=== PATIENT | female | born 1965 | race Caucasian/White ===

== ENCOUNTER → 2017-11-19 | Outpatient (CLI) | payer BC ==
[~2017-11-19] MED LIST: ASPI81CH; ASPI81CH PO; ATOR40TA PO; BRILINTA90 MG PO; CARV3.125 PO; CELE200 PO; CEPH500 PO; CODACE30 PO; DULO30 PO; ESTR2 PO; ESTRADIOL-NORE1 EACH PO; HYDACE5 PO; HYDR1TAB94 PO; HYDSUL200; Hydrocodone-Ap1 EA23 PO; LEFL20 PO; LEFLUNOMIDE PO; METTREX2.5 PO; NEBI5 PO; NITR.4SL MM; Remicade100 MG IV; SULTRIDS PO
[2017-11-20 12:03] LABS: HPV Genotype 16 Not Detected (NOTDET); HPV Genotype 18 Not Detected (NOTDET)
[2017-11-26 13:43] LABS: HPV High Risk Other Detected (NOTDET)
== END | disposition home or self-care (01) ==
LOC: LAB 11:07 → LAB SHORT 11:07
PROVIDERS: Obstetrics & Gynecology
DX: R87.612 Low grade squamous intraepithelial lesion on cytologic smear of cervix (LGSIL) (principal); R87.810 Cervical high risk human papillomavirus (HPV) DNA test positive
CPT/HCPCS: 87624; 88142

== ENCOUNTER → 2018-01-29 | Outpatient (CLI) | payer BC | END | disposition home or self-care (01) | LOC: PLD 10:38 → LAB SHORT 10:38 | DX: D22.5 Melanocytic nevi of trunk (principal) | CPT/HCPCS: 88305 ==

== ENCOUNTER → 2018-09-24 | Outpatient (CLI) | payer BC | END | disposition home or self-care (01) | LOC: LAB SHORT 11:01 → LAB 11:01 | DX: R05 Cough (principal) | CPT/HCPCS: 87070; 87205 ==

== ENCOUNTER 2018-11-24 07:00 | Day surgery (SDC) | payer BC | END 2018-11-24 07:41 | disposition home or self-care (01) | LOC: MOI US 07:00 | PROC: 07B53ZX Excision of Right Axillary Lymphatic, Percutaneous Approach, Diagnostic (ICD-10-PCS; principal; 2018-11-24) | DX: D76.3 Other histiocytosis syndromes (principal) | CPT/HCPCS: 38505; 76942; 88305 ==

== ENCOUNTER → 2018-12-01 | Outpatient (CLI) | payer BC ==
[2018-12-03 14:07] LABS: HPV 16 Negative (Negative); HPV 18 Negative (Negative); HPV OTHER HR TYPES Positive (Negative)
== END | disposition home or self-care (01) ==
LOC: LAB SHORT 15:52 → LAB 15:52
PROVIDERS: Obstetrics & Gynecology
DX: R87.810 Cervical high risk human papillomavirus (HPV) DNA test positive (principal)
CPT/HCPCS: 87624; 87625; 88142

== ENCOUNTER → 2019-01-06 | Outpatient (CLI) | payer BC | END | disposition home or self-care (01) | LOC: PLD 08:05 → LAB SHORT 08:05 | DX: N84.1 Polyp of cervix uteri (principal); N87.1 Moderate cervical dysplasia | CPT/HCPCS: 88305 ==

== ENCOUNTER → 2019-07-20 | Outpatient (CLI) | payer BC | END | disposition home or self-care (01) | LOC: LAB SHORT 07:45 → PLD 07:45 | DX: D22.5 Melanocytic nevi of trunk (principal); L81.4 Other melanin hyperpigmentation | CPT/HCPCS: 88305 ==

== ENCOUNTER → 2020-01-11 | Outpatient (CLI) | payer BC ==
[2020-01-13 15:09] LABS: HPV 16 Negative (Negative); HPV 18 Negative (Negative); HPV OTHER HR TYPES Positive (Negative)
== END | disposition home or self-care (01) ==
PROVIDERS: Obstetrics & Gynecology
DX: R87.612 Low grade squamous intraepithelial lesion on cytologic smear of cervix (LGSIL) (principal); R87.810 Cervical high risk human papillomavirus (HPV) DNA test positive

== ENCOUNTER → 2020-05-25 | Outpatient (CLI) | payer BC | END | disposition home or self-care (01) | LOC: PLD 15:14 → LAB SHORT 15:14 | DX: D22.5 Melanocytic nevi of trunk (principal) | CPT/HCPCS: 88305; 88342 ==

== ENCOUNTER → 2020-06-24 | Outpatient (CLI) | payer BC | END | disposition home or self-care (01) | LOC: LAB 18:15 → LAB SHORT 18:15 | DX: L08.9 Local infection of the skin and subcutaneous tissue, unspecified (principal) | CPT/HCPCS: 87070; 87075; 87077; 87147; 87186; 87205 ==

== ENCOUNTER 2020-08-10 09:39 | Day surgery (SDC) | payer BC ==
[~2020-08-10] VITALS: Ht 160 cm; Wt 53.4 kg
[~2020-08-10 09:39] MED LIST changes: +ATOR20 PO; +Azulfidine500 M1 PO; +CETIRIZINE PO; +CLOP75 PO; +Cymbalta20 MG PO; +FLAX SEED OIL1000 MG PO; +Fluocinonide15 GM TOP; +GABA300 PO; +OMEP20ER PO; +PSEUDOEPHEDRINE PO; +Prednisone10 MG PO; +SIMPONI100 MG/1 M SC; +Vitamin C100 M1 PO; +[UNRECOGNIZED DRUG - OTHER] PO
[2020-08-10] MEDS ORDERED: PROM25 PO (13:01)
[2020-08-10] MEDS ORDERED: OXYC5 PO (13:01)
[2020-08-10] MEDS ORDERED: SULTRIDS PO (13:02)
--- NOTE | 2020-08-10 19:34 | NUR ---
SHIFT SUMMARY ALTHOUGH SHE WASN'T ABLE TO WORK WITH THERAPY DUE TO SPINAL, PT WAS ABLE TO GET UP AND AMBULATE WITH THIS RN IN [place] THIS EVENING. PAIN WELL CONTROLLED. EATING, DRINKING, VOIDING. PLEASANT & COOPERATIVE.
[2020-08-11 05:04] LABS: BASOPHILS ABSOLUTE AUTO 0.06 K/mm3 (0.00-0.23); BASOPHILS PERCENT AUTO 1 % (0-2); EOSINOPHILS ABSOLUTE AUTO 0.14 K/mm3 (0.00-0.68); EOSINOPHILS PERCENT AUTO 2 % (0-6); Hematocrit 29.2 % (33.0-51.0); Hemoglobin 9.6 g/dL (11.5-16.0); IMMATURE GRAN ABSOLUTE AUTO 0.04 K/mm3 (0.00-0.10); IMMATURE GRAN PERCENT AUTO 0 % (0-1); LYMPHOCYTES ABSOLUTE AUTO 1.53 K/mm3 (0.84-5.20); LYMPHOCYTES PERCENT AUTO 17 % (21-46); MONOCYTES ABSOLUTE AUTO 1.07 K/mm3 (0.16-1.47); MONOCYTES PERCENT AUTO 12 % (4-13); Mean Corpuscular HGB 31.5 pg (26.0-34.0); Mean Corpuscular HGB Conc 32.9 g/dL (31.5-36.5); Mean Corpuscular Volume 96 fL (80-100); Mean Platelet Volume 11.6 fL (9.1-12.4); NEUTROPHILS PERCENT AUTO 69 % (41-73); Platelet Count 193 K/mm3 (150-400); RDW Coefficient Variation 12.1 % (11.7-14.2); RDW Standard Deviation 42.2 fL (35.1-46.3); Red Blood Cell Count 3.05 M/mm3 (3.80-5.20); White Blood Cell Count 9.24 K/mm3 (4.00-11.30)
--- NOTE | 2020-08-11 05:12 | NUR ---
SHIFT SUMMARY POD 1 L TKA AA0X4, PT HAS BEEN UP AND WALKING DURING SHIFT, TOLERATES WELL. ELSI WRAP CDI, POLAR HILDA ON. PT TOLERATING PO, HAS DENIED NAUSEA SINCE START OF SHIFT EMESIS. PAIN MANAGED PER EMAR, STATES MINIMAL AT THIS TIME. PT HAS BEEN RESTING IN BED. USING RESTROOM. PLAN IS TO WORK WITH THERAPY AND DC HOME TODAY.
[2020-08-11 05:28] LABS: Anion Gap 5 mmol/L (6-16); Blood Urea Nitrogen 10 mg/dL (8-24); Bun/Creatinine Ratio 13.6 (12.0-20.0); CO2, Blood 26 mmol/L (21-32); Calcium, Blood 8.1 mg/dL (8.5-10.1); Chloride, Blood 108 mmol/L (98-108); Creatinine, Blood 0.73 mg/dL (0.40-1.00); Glomerular Filtration Rate >60 (60-); Glucose, Blood 88 mg/dL (70-99); Magnesium, Blood 1.7 mg/dL (1.6-2.4); Potassium, Blood 3.8 mmol/L (3.5-5.5); Sodium, Blood 139 mmol/L (136-145)
--- NOTE | 2020-08-11 09:55 | NUR ---
PATIENT D/C'D HOME AT THIS TIME; STATES UNDERSTANDING OF MEDS, ACTIVITY, WOUND CARE, F/U APPT, ETC. PATIENT REFUSED AM MEDS D/T NAUSEA, UNDERSTANDS TO TAKE AT HOME THIS AM. PAIN CONTROLLED PER PATIENT. VOIDING. NO ACUTE CHANGES.
== END 2020-08-11 09:55 | disposition home or self-care (01) ==
LOC: ORSCMMR 09:39 → SURS 14:06 → ORSCMMR 08-11 09:55
PROVIDERS: Orthopaedic Surgery
PROC: 8E0YXBZ Computer Assisted Procedure of Lower Extremity (ICD-10-PCS; principal; 2020-08-10 11:15)
PROC: 0SRD0J9 Replacement of Left Knee Joint with Synthetic Substitute, Cemented, Open Approach (ICD-10-PCS; principal; 2020-08-10 11:15)
DX: M17.12 Unilateral primary osteoarthritis, left knee (principal); I10 Essential (primary) hypertension; Z79.899 Other long term (current) drug therapy; Z79.01 Long term (current) use of anticoagulants
CPT/HCPCS: 36415; 73560-LT; 80048; 83735; 85025; 88300; 97110; 97116; 97162; A9270; C1713; C1776; J0171; J0690; J0735; J1100; J1885; J2250; J2405; J2704; J2795; J3010; J3370; J7120

== ENCOUNTER → 2022-02-05 | Outpatient (CLI) | payer BC ==
[~2022-02-05] MED LIST changes: +OXYC5 PO; +PROM25 PO
[2022-02-06 16:11] LABS: HPV 16 Negative (Negative); HPV 18 Negative (Negative); HPV OTHER HR TYPES Positive (Negative)
== END | disposition home or self-care (01) ==
LOC: LAB 16:39 → LAB SHORT 16:39
PROVIDERS: Obstetrics & Gynecology
DX: Z12.4 Encounter for screening for malignant neoplasm of cervix (principal); R87.810 Cervical high risk human papillomavirus (HPV) DNA test positive
CPT/HCPCS: 87624; G0123

== ENCOUNTER → 2022-11-29 | Outpatient (CLI) | payer BC ==
[2022-11-29 15:52] LABS: BASOPHILS ABSOLUTE AUTO 0.09 K/mm3 (0.00-0.23); BASOPHILS PERCENT AUTO 2 % (0-2); EOSINOPHILS ABSOLUTE AUTO 0.19 K/mm3 (0.00-0.68); EOSINOPHILS PERCENT AUTO 3 % (0-6); Hematocrit 39.1 % (33.0-51.0); Hemoglobin 12.7 g/dL (11.5-16.0); IMMATURE GRAN ABSOLUTE AUTO 0.01 K/mm3 (0.00-0.10); IMMATURE GRAN PERCENT AUTO 0 % (0-1); LYMPHOCYTES ABSOLUTE AUTO 1.55 K/mm3 (0.84-5.20); LYMPHOCYTES PERCENT AUTO 25 % (21-46); MONOCYTES ABSOLUTE AUTO 0.43 K/mm3 (0.16-1.47); MONOCYTES PERCENT AUTO 7 % (4-13); Mean Corpuscular HGB 31.4 pg (26.0-34.0); Mean Corpuscular HGB Conc 32.5 g/dL (31.5-36.5); Mean Corpuscular Volume 97 fL (80-100); Mean Platelet Volume 12.9 fL (9.1-12.4); NEUTROPHILS ABSOLUTE AUTO 3.88 K/mm3 (1.96-9.15); NEUTROPHILS PERCENT AUTO 63 % (41-73); Platelet Count 234 K/mm3 (150-400); RDW Coefficient Variation 12.3 % (11.7-14.2); RDW Standard Deviation 44.2 fL (35.1-46.3); Red Blood Cell Count 4.04 M/mm3 (3.80-5.20); White Blood Cell Count 6.15 K/mm3 (4.00-11.30)
[2022-11-29 16:12] LABS: Albumin, Blood 3.9 g/dL (3.4-5.0); Albumin/Globulin Ratio 1.2 (0.8-1.8); Bilirubin, Total 0.4 mg/dL (0.1-1.0); Bun/Creatinine Ratio 15.6 (12.0-20.0); Calcium, Blood 8.7 mg/dL (8.5-10.1); Creatinine, Blood 0.71 mg/dL (0.40-1.00); Globulin, Blood 3.3 g/dL (2.2-4.0); Potassium, Blood 4.1 mmol/L (3.5-5.5); Total Protein, Blood 7.2 g/dL (6.4-8.2)
== END | disposition home or self-care (01) ==
LOC: LAB SHORT 09:30
PROVIDERS: Internal Medicine Rheumatology
DX: M06.00 Rheumatoid arthritis without rheumatoid factor, unspecified site (principal)
CPT/HCPCS: 80053; 85025; 85651

== ENCOUNTER → 2023-03-06 | Outpatient (CLI) | payer BC ==
[2023-03-06 13:35] LABS: BASOPHILS ABSOLUTE AUTO 0.06 K/mm3 (0.00-0.23); BASOPHILS PERCENT AUTO 2 % (0-2); EOSINOPHILS ABSOLUTE AUTO 0.17 K/mm3 (0.00-0.68); EOSINOPHILS PERCENT AUTO 4 % (0-6); Hematocrit 36.5 % (33.0-51.0); Hemoglobin 12.1 g/dL (11.5-16.0); IMMATURE GRAN PERCENT AUTO 0 % (0-1); LYMPHOCYTES ABSOLUTE AUTO 1.38 K/mm3 (0.84-5.20); LYMPHOCYTES PERCENT AUTO 34 % (21-46); MONOCYTES ABSOLUTE AUTO 0.47 K/mm3 (0.16-1.47); MONOCYTES PERCENT AUTO 12 % (4-13); Mean Corpuscular HGB 32.3 pg (26.0-34.0); Mean Corpuscular HGB Conc 33.2 g/dL (31.5-36.5); Mean Corpuscular Volume 97 fL (80-100); Mean Platelet Volume 12.1 fL (9.1-12.4); NEUTROPHILS ABSOLUTE AUTO 1.95 K/mm3 (1.96-9.15); NEUTROPHILS PERCENT AUTO 48 % (41-73); Platelet Count 238 K/mm3 (150-400); RDW Coefficient Variation 12.7 % (11.7-14.2); RDW Standard Deviation 45.1 fL (35.1-46.3); Red Blood Cell Count 3.75 M/mm3 (3.80-5.20); White Blood Cell Count 4.03 K/mm3 (4.00-11.30)
[2023-03-06 13:55] LABS: Albumin, Blood 3.6 g/dL (3.4-5.0); Albumin/Globulin Ratio 1.1 (0.8-1.8); Bilirubin, Total 0.5 mg/dL (0.1-1.0); Bun/Creatinine Ratio 16.4 (12.0-20.0); Calcium, Blood 8.4 mg/dL (8.5-10.1); Creatinine, Blood 0.73 mg/dL (0.40-1.00); Globulin, Blood 3.3 g/dL (2.2-4.0); Potassium, Blood 4.1 mmol/L (3.5-5.5); Total Protein, Blood 6.9 g/dL (6.4-8.2)
== END ==
LOC: LAB 12:05 → LAB SHORT 12:05
PROVIDERS: Internal Medicine Rheumatology
DX: M06.00 Rheumatoid arthritis without rheumatoid factor, unspecified site (principal)
CPT/HCPCS: 80053; 85025; 85651

== ENCOUNTER 2023-07-17 06:08 | Day surgery (SDC) | payer BC ==
[2023-07-17] VITALS (12 sets, daily range): BP systolic 118–149; BP diastolic 70–86
[~2023-07-17] VITALS: Ht 157.5 cm; Wt 55.0 kg
--- NOTE | 2023-07-17 08:31 | NUR ---
07/17/23 0831 Jeniffer Rogers SPINAL NERVE BLOCK COMPLETED BY DR. DE DIOS UPON ENTRY TO OR. PT TOLERATED WELL. PT NOTED TO BE REACTIVE AT START OF CASE SO AN LMA WAS PLACED BY DR. DE DIOS
--- NOTE | 2023-07-17 11:08 | NUR ---
ARRIVAL TO UNIT PT ARRIVED TO UNIT AA0X4. NO SENSATION FROM KNEES DOWN, UNABLE TO WIGGLE TOES. PPX4, CAP REFILL <3. TOES WARM. POLAR HILDA AND GHAZALA HOSE IN PLACE. PT TOLERATING WATER AT THIS TIME. NO NAUSEA REPORTED. DENIES PAIN. CALL LIGHT IN REACH.
[2023-07-17] MEDS ORDERED: OXAYDO5 M1 PO (11:26)
[2023-07-17] MEDS ORDERED: XARELTO20 MG PO (11:26)
[2023-07-17] MEDS ORDERED: SULTRIDS PO (11:27)
--- NOTE | 2023-07-17 15:01 | NUR ---
ASSUMED CARE OF PT.
--- NOTE | 2023-07-17 15:10 | NUR ---
Pt. is sitting in a recliner awaiting discharge when she welcomes my visit. Spouse is present. Pt. displays evidence of energy and motivation to address her recovery and rapport with family is established. Encourgaement and well wishes are given. Pt. and spouse verbalize gratitude for the lead sales consultant visit.
--- NOTE | 2023-07-17 15:33 | NUR ---
DISCHARGE PT HAS CLEARED THERAPY. PAIN WELL CONTROLLED. EATING, DRINKING, & VOIDING WELL. MICHAEL & CAROL PACK SENT w/ PT. ESCORTED OUT VIA W/C.
== END 2023-07-17 15:33 | disposition home or self-care (01) ==
LOC: ORSCMMR 06:08 → ORD 07:30 → ORSCMMR 07:30 → SURS 10:30 → ORSCMMR 15:33
PROVIDERS: Orthopaedic Surgery
PROC: 0SRC0J9 Replacement of Right Knee Joint with Synthetic Substitute, Cemented, Open Approach (ICD-10-PCS; principal; 2023-07-17 07:30)
DX: M17.11 Unilateral primary osteoarthritis, right knee (principal); I10 Essential (primary) hypertension; I25.10 Atherosclerotic heart disease of native coronary artery without angina pectoris; L40.50 Arthropathic psoriasis, unspecified; Z79.899 Other long term (current) drug therapy
CPT/HCPCS: 73560-RT; 97110; 97161; 97530; A9270; C1713; C1776; J0171; J0690; J0735; J1100; J1885; J2250; J2371; J2405; J2704; J2795; J3010; J3370; J7120

== ENCOUNTER → 2023-10-03 | Outpatient (CLI) | payer BC ==
[~2023-10-03] MED LIST changes: +OXAYDO5 M1 PO; +XARELTO20 MG PO
[2023-10-03 13:18] LABS: BASOPHILS ABSOLUTE AUTO 0.09 K/mm3 (0.00-0.23); BASOPHILS PERCENT AUTO 2 % (0-2); EOSINOPHILS ABSOLUTE AUTO 0.29 K/mm3 (0.00-0.68); EOSINOPHILS PERCENT AUTO 6 % (0-6); Hematocrit 39.9 % (33.0-51.0); Hemoglobin 13.1 g/dL (11.5-16.0); IMMATURE GRAN ABSOLUTE AUTO 0.01 K/mm3 (0.00-0.10); IMMATURE GRAN PERCENT AUTO 0 % (0-1); LYMPHOCYTES ABSOLUTE AUTO 1.46 K/mm3 (0.84-5.20); LYMPHOCYTES PERCENT AUTO 29 % (21-46); MONOCYTES ABSOLUTE AUTO 0.48 K/mm3 (0.16-1.47); MONOCYTES PERCENT AUTO 10 % (4-13); Mean Corpuscular HGB 31.7 pg (26.0-34.0); Mean Corpuscular HGB Conc 32.8 g/dL (31.5-36.5); Mean Corpuscular Volume 97 fL (80-100); Mean Platelet Volume 11.7 fL (9.1-12.4); NEUTROPHILS ABSOLUTE AUTO 2.64 K/mm3 (1.96-9.15); NEUTROPHILS PERCENT AUTO 53 % (41-73); Platelet Count 262 K/mm3 (150-400); RDW Coefficient Variation 12.2 % (11.7-14.2); RDW Standard Deviation 43.6 fL (35.1-46.3); Red Blood Cell Count 4.13 M/mm3 (3.80-5.20); White Blood Cell Count 4.97 K/mm3 (4.00-11.30)
[2023-10-04 09:11] LABS: A/G RATIO 2.1 (1.2-2.2); BILIRUBIN, TOTAL 0.3 mg/dL (0.0-1.2); CALCIUM, SERUM 9.7 mg/dL (8.7-10.2); CREATININE, SERUM 0.78 mg/dL (0.57-1.00); GLOBULIN, TOTAL 2.2 g/dL (1.5-4.5); POTASSIUM, SERUM 4.4 mmol/L (3.5-5.2); PROTEIN, TOTAL, SERUM 6.8 g/dL (6.0-8.5)
== END ==
LOC: LAB SHORT 11:45 → LAB 11:45
PROVIDERS: Internal Medicine Rheumatology
DX: M06.00 Rheumatoid arthritis without rheumatoid factor, unspecified site (principal)
CPT/HCPCS: 80053; 85025; 85651

== ENCOUNTER → 2024-04-16 | Outpatient (CLI) | payer BC ==
[2024-04-16 14:31] LABS: BASOPHILS ABSOLUTE AUTO 0.08 K/mm3 (0.00-0.23); BASOPHILS PERCENT AUTO 2 % (0-2); EOSINOPHILS ABSOLUTE AUTO 0.15 K/mm3 (0.00-0.68); EOSINOPHILS PERCENT AUTO 3 % (0-6); Hematocrit 37.5 % (33.0-51.0); Hemoglobin 12.2 g/dL (11.5-16.0); IMMATURE GRAN ABSOLUTE AUTO 0.01 K/mm3 (0.00-0.10); IMMATURE GRAN PERCENT AUTO 0 % (0-1); LYMPHOCYTES ABSOLUTE AUTO 1.17 K/mm3 (0.84-5.20); LYMPHOCYTES PERCENT AUTO 24 % (21-46); MONOCYTES ABSOLUTE AUTO 0.47 K/mm3 (0.16-1.47); MONOCYTES PERCENT AUTO 9 % (4-13); Mean Corpuscular HGB 32.9 pg (26.0-34.0); Mean Corpuscular HGB Conc 32.5 g/dL (31.5-36.5); Mean Corpuscular Volume 101 fL (80-100); Mean Platelet Volume 12.5 fL (9.1-12.4); NEUTROPHILS PERCENT AUTO 62 % (41-73); Platelet Count 205 K/mm3 (150-400); RDW Coefficient Variation 12.5 % (11.7-14.2); Red Blood Cell Count 3.71 M/mm3 (3.80-5.20); White Blood Cell Count 4.98 K/mm3 (4.00-11.30)
[2024-04-16 15:31] LABS: Albumin/Globulin Ratio 1.2 (0.8-1.8); Bilirubin, Total 0.6 mg/dL (0.1-1.0); Bun/Creatinine Ratio 26.2 (12.0-20.0); Creatinine, Blood 0.73 mg/dL (0.40-1.00); Globulin, Blood 3.3 g/dL (2.2-4.0); Total Protein, Blood 7.3 g/dL (6.4-8.2)
== END | disposition home or self-care (01) ==
LOC: LAB SHORT 11:31 → LAB 11:31
PROVIDERS: Internal Medicine Rheumatology
DX: M06.00 Rheumatoid arthritis without rheumatoid factor, unspecified site (principal)
CPT/HCPCS: 80053; 85025; 85651

== ENCOUNTER → 2024-10-14 | Outpatient (CLI) | payer BC ==
[2024-10-14 14:34] LABS: BASOPHILS ABSOLUTE AUTO 0.07 K/mm3 (0.00-0.23); BASOPHILS PERCENT AUTO 2 % (0-2); EOSINOPHILS ABSOLUTE AUTO 0.13 K/mm3 (0.00-0.68); EOSINOPHILS PERCENT AUTO 3 % (0-6); Hematocrit 37.4 % (33.0-51.0); Hemoglobin 12.5 g/dL (11.5-16.0); IMMATURE GRAN ABSOLUTE AUTO 0.01 K/mm3 (0.00-0.10); IMMATURE GRAN PERCENT AUTO 0 % (0-1); LYMPHOCYTES ABSOLUTE AUTO 1.11 K/mm3 (0.84-5.20); LYMPHOCYTES PERCENT AUTO 25 % (21-46); MONOCYTES PERCENT AUTO 11 % (4-13); Mean Corpuscular HGB 33.5 pg (26.0-34.0); Mean Corpuscular HGB Conc 33.4 g/dL (31.5-36.5); Mean Corpuscular Volume 100 fL (80-100); Mean Platelet Volume 12.5 fL (9.1-12.4); NEUTROPHILS ABSOLUTE AUTO 2.66 K/mm3 (1.96-9.15); NEUTROPHILS PERCENT AUTO 59 % (41-73); Platelet Count 247 K/mm3 (150-400); RDW Standard Deviation 44.9 fL (35.1-46.3); Red Blood Cell Count 3.73 M/mm3 (3.80-5.20); White Blood Cell Count 4.48 K/mm3 (4.00-11.30)
[2024-10-14 14:52] LABS: Albumin, Blood 3.7 g/dL (3.4-5.0); Albumin/Globulin Ratio 1.1 (0.8-1.8); Bilirubin, Total 0.7 mg/dL (0.1-1.0); Bun/Creatinine Ratio 19.6 (12.0-20.0); Calcium, Blood 9.3 mg/dL (8.5-10.1); Creatinine, Blood 0.72 mg/dL (0.40-1.00); Globulin, Blood 3.5 g/dL (2.2-4.0); Potassium, Blood 4.2 mmol/L (3.5-5.5); Total Protein, Blood 7.2 g/dL (6.4-8.2)
== END ==
LOC: LAB 11:35 → LAB SHORT 11:35
PROVIDERS: Internal Medicine Rheumatology
DX: M06.00 Rheumatoid arthritis without rheumatoid factor, unspecified site (principal)
CPT/HCPCS: 80053; 85025; 85651